=== PATIENT | male | born 1955 | race Hispanic/Latino ===

== ENCOUNTER → 2018-09-14 | Day surgery (SDC) | payer OTHER ==
[~2018-09-14] MED LIST: Iodixanol 320 MG/ML 100 ML BOTTLE IV ONE; Lidocaine 2% MPF (5 ml) Inj ONE; Midazolam 2 MG/2 ML VIAL ONE; Sodium Chloride 0.45% 1,000 ML IV SCH
--- NOTE | 2018-09-14 17:05 | CATH ---
APPROVED REPORT Date of service: 09/14/2018 Procedure(s) performed: Left Heart Catheterization Left Ventriculogram right iliac angio HISTORY tobacco history() : The patient is a current smoker: family history of premature CAD. INDICATION The indication(s) include : positive stress test, palpitations, chest pain, abnormal ECG, arrhythmia, cardiomyopathy on echo. CASE TECHNIQUE The patient was brought electively to the Cardiac Catheterization Laboratory in a fasting state and was prepped and draped in a sterile manner. The right femoral groin was infiltrated with 2% Lidocaine subcutaneous anesthesia. A sheath was inserted into the right femoral artery without difficulty. Coronary angiography was performed using coronary diagnostic catheters. The left coronary system was accessed and visualized with a Diagnostic catheter. The right coronary system was accessed and visualized with a Diagnostic catheter. The left ventricle was accessed and visualized with a Diagnostic catheter. Left ventricular/Aortic Valve gradient assessed on pullback. Left ventriculogram was performed in LEXII projection. Pre-demployment femoral angiogram was performed . Closure device was deployed with a 6 Fr Mynx without any complications. The patient tolerated the procedure well and there were no complications associated with the procedure. Vessel Analysis The patient's coronary anatomy is right dominant. The left main coronary artery is a small size vessel without significant stenosis. The left main bifurcates to the left anterior descending and circumflex. The left anterior descending artery is a large size vessel without significant stenosis. The first diagonal branch is a medium size vessel without significant stenosis. The circumflex artery is a large size vessel without significant stenosis. The first obtuse marginal branch is a large size vessel without significant stenosis. The second obtuse marginal branch is a small size vessel without significant stenosis. The right coronary artery is a large size vessel without significant stenosis. The right posterior descending artery is a medium size vessel without significant stenosis. The right posterolateral branch is a medium size vessel without significant stenosis. Left Ventricle The left ventricle is normal in size with mildly decreased contractility. The left ventricular ejection fraction is estimated to be 45-50%. The left ventricular end diastolic pressure is 9 mmHg. There was no gradient across the aortic valve upon pullback. Conclusion nonischemic Dilated Cardiomyopathy ef 45-50% Recommendations Aggressive Medical TherapyCardiac Risk Reduction Program d/c etoh use control arrythmia
[2018-09-14 19:17] VITALS: BMI 24.0
== END | disposition home or self-care (01) ==
LOC: C.CATHLAB 13:41
PROVIDERS: ATTEND Internal Medicine Cardiovascular Disease
DX: I42.0 Dilated cardiomyopathy (principal); R07.9 Chest pain, unspecified; F17.210 Nicotine dependence, cigarettes, uncomplicated; F10.10 Alcohol abuse, uncomplicated
CPT/HCPCS: 93458; 99152; 99153; C1760; C1769; C1887; C1893; J1644; J2250; J3010; J7030; Q9967